=== PATIENT | male | born 1985 | race Caucasian/White ===

== ENCOUNTER 2022-05-09 05:24 | Emergency (ER) | payer BC, OTHER ==
[2022-05-09 05:48] VITALS: BP 117/80; PULSE 64; RESP 20; TEMP 101.7; BMI 34.9
[2022-05-09] MEDS ORDERED: ACETAMINOPHEN 500 MG TABLET (FP) PO ONE (06:28)
[2022-05-09] MEDS ORDERED: ACETAMINOPHEN 500 MG TABLET (FP) ONE (06:39)
== END 2022-05-09 07:10 | disposition left against medical advice (07) ==
LOC: JER 05:24
DX: R50.9 Fever, unspecified (principal); R05.1 Acute cough
CPT/HCPCS: 0241U-QW; 99281-25